=== PATIENT | male | born 1985 | race Two or more races ===

== ENCOUNTER 2025-07-21 00:19 | Emergency (ER) | payer OTHER ==
[~2025-07-21] VITALS: Ht 167.6 cm; Wt 120.7 kg
[2025-07-21] MEDS ORDERED: HYOSCYAMINE SULFATE 0.125 MG TAB.SUBL SL STA (02:28)
[2025-07-21] MEDS ORDERED: PROMETHAZINE HCL 50 MG/ML AMPUL IM STA (02:28)
[2025-07-21] MEDS ORDERED: LACTOBACILLUS ACIDOPHILUS 1 CAP CAP PO STA ×2 (02:29→08:29)
[2025-07-21] MEDS ORDERED: FAMOTIDINE/PF 20 MG/2 ML VIAL IV PUSH STA (02:29)
[2025-07-21] MEDS ORDERED: 0.9 % SODIUM CHLORIDE 1,000 ML IV ONE (02:30)
[2025-07-21] MEDS ORDERED: PROMETHAZINE HCL 50 MG/ML AMPUL IM ONE (02:40)
[2025-07-21] MEDS ORDERED: FAMOTIDINE/PF 20 MG/2 ML VIAL ONE (02:41)
[2025-07-21] MEDS ORDERED: LACTOBACILLUS ACIDOPHILUS 1 CAP CAP PO ONE ×2 (02:41→08:55)
[2025-07-21] MEDS ORDERED: HYOSCYAMINE SULFATE 0.125 MG TAB.SUBL ONE (02:41)
[2025-07-21 03:57] LABS: BUN CREA RATIO 18.0 (7.0-25.0); CREATININE SERUM 1.24 mg/dL (0.70-1.30); GFR 64.9; GLUCOSE FASTING 136.0 mg/dL (65-100); OSMOLALITY SERUM 289.0 MOSM/KG (275-295)
[2025-07-21 04:05] LABS: BASO % 0.2 % (0.1-1.2); EOS # 0.00 (0.04-0.54); EOS % 0.0 % (0.7-7.0); LYMPH # 0.95 (1.18-3.74); LYMPH % 4.9 % (19.3-53.1); MEAN PLATELET VOLUME 10.20 fl (9.4-12.4); MONO # 0.77 (0.24-0.82); MONO % 4.0 % (4.7-12.5); NEUT # 17.52 (1.56-6.13); NEUT % 90.5 % (34.0-71.1); RED CELL DISTRIBUTION WIDTH 13.9 % (11.6-14.4)
[2025-07-21 04:24] LABS: URINE APPEARANCE Clear; URINE BILIRRUBIN Negative (NEGATIVE); URINE BLOOD Large; URINE COLOR Yellow; URINE GLUCOSE Negative (NEGATIVE); URINE KETONE Negative (NEGATIVE); URINE LEUKOCYTE Negative; URINE NITRATE Negative; URINE PROTEIN 30 (NEGATIVE); URINE UROBILINOGEN 0.2 E.U./dl
[2025-07-21 04:28] LABS: URINE BACTERIA 41.9 uL (0.0-1933); URINE EPITHELIAL CELLS 8.9 uL (0.0-38.8); URINE RBC 995.2 uL (0.0-20.8); URINE WBC 40.5 uL (0.0-23.2)
[2025-07-21 04:31] LABS: URINE CAST 0.14 uL (0.0-1.40)
[2025-07-21] MEDS ORDERED: KETOROLAC TROMETHAMINE 30 MG VIAL IV STA (08:29)
[2025-07-21] MEDS ORDERED: CIPROFLOXACIN IN 5 % DEXTROSE 400 MG/200 ML PIGGYBAG IV STA (08:31)
[2025-07-21] MEDS ORDERED: CIPROFLOXACIN IN 5 % DEXTROSE 400 MG/200 ML PIGGYBAG IV ONE (08:54)
[2025-07-21] MEDS ORDERED: KETOROLAC TROMETHAMINE 30 MG VIAL ONE (08:54)
[2025-07-21] MEDS ORDERED: KETO10TA2 PO (13:50)
[2025-07-21] MEDS ORDERED: TAMS0.4C PO (13:50)
== END 2025-07-21 15:05 | disposition home or self-care (01) ==
LOC: ER 00:20
PROVIDERS: General Practice
DX: N13.39 Other hydronephrosis (principal); N20.1 Calculus of ureter; K57.30 Diverticulosis of large intestine without perforation or abscess without bleeding